=== PATIENT | male | born 2000 | race Caucasian/White ===

== ENCOUNTER 2020-02-13 09:42 | Inpatient (IN) | payer MEDICAID ==
[~2020-02-13] VITALS: Ht 172.7 cm; Wt 74.2 kg
--- NOTE | 2020-02-13 09:51 | NUR ---
THIS IS A 19 YO M BIB EMS FROM [facility] W/ DX OF CEREBELLAR STROKE SYNDROME. PT REPORTS AT MIDNIGHT HE WAS AT WORK WALKING AROUND WHEN HE HAD SUDDEN ONSET OF MADERA, DIZZINESS, VISION LOSS IN LT EYE, UNABLE TO OPEN LT EYE, PINS AND NEEDLES IN LT LEG, INTERMITTENT LOSS OF MOVEMENT IN LT LEG, AND MUSCLE CRAMPING. 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 PT REPORTS VISION IMPROVING BUT STILL BLURRY. PT REPORTS MADERA STILL 8/10. PT REPORTS MUSCLE CRAMPS IN LT LEG, PT ABLE TO UNCROSS LT LEG INDEPENDENTLY FOR NEURO EXAM. PT AWAKE AND ALERT AND ABLE TO ANSWER QUESTIONS APPROPRIATELY. PT DENIES RECENT INJURY TO NECK/HEAD. PT RESTING ON [employer] (Closed) W/ CALL LIGHT IN REACH AND SIDE RAILS UPX2. CONNECTED TO ALL MONITORING, [employer]. AT BEDSIDE FOR EVAL.
--- NOTE | 2020-02-13 10:06 | NUR ---
Note jacob in EDM - 02/13/20 at 1007 by ADELINE TRANSFER [facility] HAS NO RECORD OF MEDS ADMIN AT FACILITY PRIOR TO TRANSFER. 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
--- NOTE | 2020-02-13 10:07 | NUR ---
TRANSFER [facility] HAS NO RECORD OF MEDS ADMIN AT FACILITY PRIOR TO TRANSFER. 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
--- NOTE | 2020-02-13 10:12 | NUR ---
EMAIL ADMINISTRATOR NEURO CALLED @101
--- NOTE | 2020-02-13 10:28 | NUR ---
PT PROVIDED W/ URINAL AND EDUCATED ON NEED FOR SAMPLE.
[2020-02-13 10:41] LABS: HCT (SEDRATE) 49.8 % (39.2-51.8)
--- NOTE | 2020-02-13 10:41 | NUR ---
PT STATES HE IS UNABLE TO PROVIDE URINE SAMPLE AT THIS TIME.
--- NOTE | 2020-02-13 10:55 | NUR ---
PT IN MRI.
[2020-02-13] MEDS ORDERED: GADOTERATE 10 MMOL/20 ML SYR ONE (11:21)
--- NOTE | 2020-02-13 11:41 | NUR ---
PT RETURNED FROM CT. CONNECTED TO ALL MONITORING, RESP EVEN AND UNLABORED, PT EDUCATED ON NEED FOR URINE SAAMPLE. Addendum: 02/13/20 at 1144 by CBRUCIAGA PT RETURNED FROM MRI. CONNECTED TO ALL MONITORING, RESP EVEN AND UNLABORED, [place]. PT EDUCATED ON NEED FOR URINE SAAMPLE.
--- NOTE | 2020-02-13 11:52 | NUR ---
PT STATES HE DOES NOT HAVE THE URGE TO URINATE BUT HE IS WILLING TO TRY AND PROVIDE SAMPLE. URINE OUTPUT 700ML. URINE COLLECTED AND SENT TO LAB.
[2020-02-13 12:18] LABS: AMPHETAMINE SCREEN, URINE Negative (Negative); BARBITURATE SCREEN, URINE Negative (Negative); BENZODIAZEPINE SCREEN, URINE Negative (Negative); CANNABINOID SCREEN, URINE Positive (Negative); COCAINE SCREEN, URINE Negative (Negative); METHADONE SCREEN, URINE Negative (Negative); OPIATE SCREEN, URINE Negative (Negative)
--- NOTE | 2020-02-13 12:23 | NUR ---
OPHTHALMOLOGY CALLED AND PICKED UP @ [phone]
--- NOTE | 2020-02-13 13:40 | NUR ---
AT BEDSIDE FOR EVAL.
--- NOTE | 2020-02-13 13:46 | NUR ---
MED SUSIE FROM PHARMACY.
--- NOTE | 2020-02-13 14:22 | NUR ---
REPORT RECEIVED FROM [facility]. ASSUMED CARE. PT MEDICATED PER MAR
[2020-02-13] MEDS ORDERED: GADOTERATE 7.5 MMOL/15 ML SYR ONE (15:30)
--- NOTE | 2020-02-13 16:01 | NUR ---
PT RETURNED FROM MRI. PT RESTING IN [facility]. CONNECTED TO MONITORING EQUIPMENT. VSS. NAD
[2020-02-13 16:26] VITALS: BP 118/70
[2020-02-13] MEDS ORDERED: ONDANSETRON ODT 4 MG PO PRN (17:00)
[2020-02-13] MEDS ORDERED: ONDANSETRON 2MG/ML, 2ML IVPush PRN (17:00)
[2020-02-13] MEDS: ACETAMINOPHEN 325 MG TABLET PO PRN (19:45)
[2020-02-13] MEDS: FAMOTIDINE 20 MG TABLET PO SCH (19:45)
[2020-02-13 20:20] VITALS: BP 129/72
[2020-02-14 02:00] VITALS: BP 120/65
[2020-02-14] MEDS: ACETAMINOPHEN 325 MG TABLET PO PRN ×2 (05:37→19:43)
[2020-02-14 07:07] VITALS: BP 109/54
[2020-02-14] MEDS: FAMOTIDINE 20 MG TABLET PO SCH (07:41)
[2020-02-14 12:15] VITALS: BP 112/60
[2020-02-14] MEDS: GABAPENTIN 100 MG CAPSULE PO SCH ×2 (12:19→19:43)
[2020-02-14] MEDS ORDERED: FAMOTIDINE 40 MG TABLET ONE (19:31)
[2020-02-14 19:33] VITALS: BP 116/62
[2020-02-14] MEDS: FAMOTIDINE 10 MG TAB PO SCH (22:55)
[2020-02-15 01:10] VITALS: BP 109/56
[2020-02-15 07:38] VITALS: BP 110/61
[2020-02-15] MEDS ORDERED: LIDOCAINE-MPF 1%, 5ML ONE (08:42)
[2020-02-15] MEDS ORDERED: LORazepam 1MG TABLET ONE (08:52)
[2020-02-15] MEDS ORDERED: LORazepam 1MG TABLET PO ONE (09:00)
[2020-02-15 10:42] LABS: GLUCOSE, CSF 89 mg/dL (40-80); TOTAL PROTEIN,CSF 31 mg/dL (15-45)
[2020-02-15] MEDS: FAMOTIDINE 10 MG TAB PO SCH ×2 (10:49→20:58)
[2020-02-15] MEDS: GABAPENTIN 100 MG CAPSULE PO SCH ×2 (10:49→20:59)
[2020-02-15] MEDS: morphine SULFATE 10 MG/ML, 1ML IVPush PRN ×2 (10:50→14:40)
[2020-02-15 13:48] VITALS: BP 116/64
[2020-02-15 19:35] VITALS: BP 109/73
[2020-02-15] MEDS: ACETAMINOPHEN 325 MG TABLET PO PRN (20:58)
[2020-02-16 04:30] VITALS: BP 116/71
[2020-02-16 06:38] VITALS: BP 101/61
[2020-02-16] MEDS: FAMOTIDINE 10 MG TAB PO SCH ×2 (09:08→20:00)
[2020-02-16] MEDS: GABAPENTIN 100 MG CAPSULE PO SCH ×2 (09:08→20:00)
[2020-02-16] MEDS: morphine SULFATE 10 MG/ML, 1ML IVPush PRN ×3 (09:15→19:59)
[2020-02-16 12:24] VITALS: BP 103/65
[2020-02-16 19:21] VITALS: BP 99/57
[2020-02-17] MEDS: ACETAMINOPHEN 325 MG TABLET PO PRN ×3 (00:04→13:58)
[2020-02-17 00:28] VITALS: BP 110/64
[2020-02-17] MEDS: FAMOTIDINE 10 MG TAB PO SCH (07:59)
[2020-02-17] MEDS: GABAPENTIN 100 MG CAPSULE PO SCH (07:59)
[2020-02-17 08:52] VITALS: BP 114/68
[2020-02-17] MEDS: morphine SULFATE 10 MG/ML, 1ML IVPush PRN (10:20)
[2020-02-17] MEDS ORDERED: ACET325T26 PO (13:19)
[2020-02-17] MEDS ORDERED: OXYC5TAB3 PO (13:19)
[2020-02-17] MEDS ORDERED: ONDA4TAB13 PO (13:19)
[2020-02-17 15:43] VITALS: BP 124/77
== END 2020-02-17 16:17 | disposition home or self-care (01) | DRG 82 ==
LOC: EDSEX 09:42 → ED 14:02 → EDIP 14:22 → 4WST 16:22
PROVIDERS: ADMIT Family Medicine; ATTEND Internal Medicine
PROC: 009U3ZX Drainage of Spinal Canal, Percutaneous Approach, Diagnostic (ICD-10-PCS; principal; 2020-02-15)
PROC: B01B1ZZ Fluoroscopy of Spinal Cord using Low Osmolar Contrast (ICD-10-PCS; 2020-02-15)
DX: H53.47 Heteronymous bilateral field defects (principal); H53.9 Unspecified visual disturbance; H53.2 Diplopia
CPT/HCPCS: 36415; 62328; 70543; 70553; 80307; 82040; 82042; 82784; 82945; 84157; 85651; 86140; 86645; 86695; 86696; 86762; 86777; 86778; 89051; 93005; 96365; 99285; G0378; J2930; A9575; J2270